=== PATIENT | female | born 1930 | race Caucasian/White ===

== ENCOUNTER 2016-07-05 13:48 | Emergency (ER) | payer MEDICARE, OTHER ==
[~2016-07-05 13:48] MED LIST: ACET500C8 PO; DIVA500T53 PO; DULO30CA PO; LEVO75TA42 PO; QUET50TA PO; TRAZ50TA2 PO
[2016-07-05] MEDS ORDERED: SODIUM CHLORIDE 0.9% 1,000 ML IV ONE (14:39)
[2016-07-05 15:46] LABS: Basophils # (auto) 0 uL; Basophils % (auto) 0.5 % (0.0-2.0); Eosinophils # (auto) 0.2 uL; Eosinophils % (auto) 2.1 % (0.0-7.0); Hematocrit 42.4 % (36.0-46.0); Hemoglobin 14.1 g/dL (12.2-16.2); Lymphocytes # (auto) 4.7 uL; Lymphocytes % (auto) 54.9 % (10.0-50.0); Mean Corpuscular Hemoglobin 30.4 pg (28.0-32.0); Mean Corpuscular Hgb Conc. 33.3 g/dL (32.0-36.0); Mean Corpuscular Volume 91.4 fL (80.0-100.0); Mean Platelet Volume 9.4 fL (7.4-10.4); Monocytes # (auto) 0.8 uL; Monocytes % (auto) 9.2 % (0.0-12.0); Neutrophils # (auto) 2.8 uL; Neutrophils % (auto) 33.3 % (37.0-80.0); Platelet Count (auto) 332 10^3/uL (140-450); Red Cell Distribution Width 13.4 % (11.6-16.0); White Blood Cell 8.5 10^3/uL (4.4-10.8)
[2016-07-05 15:49] LABS: Albumin 3.5 g/dL (3.4-5.0); BUN/Creatinine Ratio 26.2; Calcium 9.1 mg/dL (8.5-10.1); Potassium 3.8 mmol/L (3.5-5.1)
[2016-07-05 15:57] LABS: Bilirubin, Total 0.2 mg/dL (0.2-1.0); Total Protein 7.6 g/dL (6.4-8.2)
[2016-07-05 15:58] LABS: B-Type Natriuretic Peptide 31.31 pg/mL (0-100)
[2016-07-05 16:14] LABS: Temperature: 21.1 C (20.0-25.0)
[2016-07-05 16:50] LABS: Urine RBC None Seen /hpf (0 - 4)
[2016-07-05 17:10] LABS: Urine Bilirubin Negative (Negative); Urine Blood Negative /uL (Negative); Urine Color Yellow (Yellow); Urine Glucose Normal (Normal); Urine Ketone 1+ (Negative); Urine Mucus FEW (None Seen); Urine Nitrite Negative (Negative); Urine Squamous Epithelial Cell FEW /hpf (<5); Urine WBC Clumps PRESENT /hpf (None Seen); Urine pH 6.5 (5.0-8.0)
[2016-07-05] MEDS ORDERED: NITROFURANTOIN (MONO) 100 mg CAP PO ONE (19:15)
[2016-07-05] MEDS ORDERED: LEVOFLOXACIN 500MG 100 ML IV ONE (20:30)
[2016-07-05 23:40] VITALS: BP 147/97
== END 2016-07-06 01:02 | disposition home or self-care (01) ==
LOC: EDUNIT# 13:48 → ER 14:41
DX: F03.90 Unspecified dementia, unspecified severity, without behavioral disturbance, psychotic disturbance, mood disturbance, and anxiety (principal); N39.0 Urinary tract infection, site not specified; M25.552 Pain in left hip
CPT/HCPCS: 36415; 51702; 70450; 71010; 73502; 80053; 81001; 83880; 84484; 85025; 85049; 94761; 96361; 96365; 99285; J1956; J7030

== ENCOUNTER 2016-07-11 10:48 | Inpatient (IN) | payer MEDICARE ==
[~2016-07-11] VITALS: Ht 162.6 cm; Wt 65.6 kg
[2016-07-11 11:55] LABS: Basophils # (auto) 0 uL; Basophils % (auto) 0.3 % (0.0-2.0); Eosinophils # (auto) 0.1 uL; Hematocrit 42.1 % (36.0-46.0); Hemoglobin 13.8 g/dL (12.2-16.2); Lymphocytes # (auto) 3.2 uL; Lymphocytes % (auto) 24.4 % (10.0-50.0); Mean Corpuscular Hemoglobin 30.1 pg (28.0-32.0); Mean Corpuscular Hgb Conc. 32.9 g/dL (32.0-36.0); Mean Corpuscular Volume 91.5 fL (80.0-100.0); Mean Platelet Volume 9.8 fL (7.4-10.4); Monocytes # (auto) 1.4 uL; Neutrophils # (auto) 8.2 uL; Neutrophils % (auto) 63.3 % (37.0-80.0); Platelet Count (auto) 330 10^3/uL (140-450); Red Cell Distribution Width 13.4 % (11.6-16.0)
[2016-07-11 12:27] LABS: Albumin 3.6 g/dL (3.4-5.0); BUN/Creatinine Ratio 20.6; Bilirubin, Total 0.3 mg/dL (0.2-1.0); Calcium 9.4 mg/dL (8.5-10.1); Magnesium 2.4 mg/dL (1.6-2.6); Potassium 3.9 mmol/L (3.5-5.1); Total Protein 7.6 g/dL (6.4-8.2)
[2016-07-11 13:48] LABS: Urine Bilirubin Negative (Negative); Urine Blood Negative /uL (Negative); Urine Color Yellow (Yellow); Urine Glucose Normal (Normal); Urine Mucus FEW (None Seen); Urine Nitrite Negative (Negative); Urine RBC 1 /hpf (0 - 4); Urine Squamous Epithelial Cell FEW /hpf (<5); Urine Urobilinogen Normal (Negative); Urine pH 7.5 (5.0-8.0)
[2016-07-11 13:51] LABS: Urine Ketone 1+ (Negative)
[2016-07-11] MEDS ORDERED: SODIUM CHLORIDE 0.9% 1,000 ML IV ONE (15:29)
[2016-07-11] MEDS ORDERED: cefTRIAXone 1GM/50ML D5W 50 ML IV ONE (15:45)
[2016-07-11] MEDS ORDERED: MORPHINE SULF INJ 2 MG/ML SYRINGE 1ML IV ONE (16:30)
[2016-07-11] MEDS ORDERED: ONDANSETRON HCL 4 MG/2 ML VIAL IV ONE (16:30)
[2016-07-11] MEDS ORDERED: AZITHROMYCIN 500MG/D5W 250ML 250 ML IV ONE (17:15)
[2016-07-11 17:26] LABS: INR 1.08 (0.9-1.15); Partial Thromboplastin Time 26.6 sec (22.64-33.71); Prothrombin Time 11.1 sec (9.37-12.3)
[2016-07-11] MEDS ORDERED: DOCUSATE SOD 100 MG CAP PO PRN (17:45)
[2016-07-11] MEDS ORDERED: HYDROcodone-ACET 5/325MG TAB PO PRN (17:45)
[2016-07-11] MEDS ORDERED: ONDANSETRON HCL 4 MG/2 ML VIAL IV PRN (17:45)
[2016-07-11] MEDS ORDERED: MORPHINE SULF INJ 2 MG/ML SYRINGE 1ML IV PRN (17:45)
[2016-07-11] MEDS ORDERED: ACETAMINOPHEN 325 MG TAB PO PRN (17:45)
[2016-07-11] MEDS ORDERED: TEMAZEPAM 15 MG CAP PO PRN (17:45)
[2016-07-11] MEDS ORDERED: cloNIDine HCL 0.1 MG TAB PO PRN (19:15)
[2016-07-11 20:00] VITALS: BP 142/78
[2016-07-11 21:01] VITALS: BP 142/78
[2016-07-11] MEDS: SODIUM CHLOR 0.9% PF (SALINE LOCK) 10ML VIAL IV SCH (22:45)
[2016-07-11] MEDS: VALPROATE SOD 250 MG/5 ML ORAL SOLN PO SCH (22:46)
[2016-07-11] MEDS: ALPRAZolam 0.5 MG TAB PO SCH (22:49)
[2016-07-11] MEDS: QUEtiapine FUMARATE 25 MG TAB PO SCH (22:50)
[2016-07-11] MEDS: traZODone HCL 50 MG TAB PO SCH (22:52)
[2016-07-11] MEDS: ASCORBIC ACID 500 MG TAB PO SCH (22:52)
[2016-07-12 05:00] VITALS: BP 108/60
[2016-07-12 05:53] LABS: Potassium 3.5 mmol/L (3.5-5.1)
[2016-07-12 05:58] LABS: Albumin 2.8 g/dL (3.4-5.0); BUN/Creatinine Ratio 17.2; Calcium 8.1 mg/dL (8.5-10.1)
[2016-07-12 05:59] LABS: Basophils # (auto) 0 uL; Basophils % (auto) 0.4 % (0.0-2.0); Eosinophils # (auto) 0.1 uL; Eosinophils % (auto) 1.3 % (0.0-7.0); Hematocrit 36.5 % (36.0-46.0); Hemoglobin 11.9 g/dL (12.2-16.2); Lymphocytes # (auto) 2.9 uL; Lymphocytes % (auto) 33.9 % (10.0-50.0); Mean Corpuscular Hemoglobin 30.3 pg (28.0-32.0); Mean Corpuscular Hgb Conc. 32.7 g/dL (32.0-36.0); Mean Corpuscular Volume 92.6 fL (80.0-100.0); Mean Platelet Volume 9.7 fL (7.4-10.4); Monocytes # (auto) 1.2 uL; Monocytes % (auto) 14.2 % (0.0-12.0); Neutrophils # (auto) 4.4 uL; Neutrophils % (auto) 50.2 % (37.0-80.0); Platelet Count (auto) 309 10^3/uL (140-450); Red Cell Distribution Width 13.6 % (11.6-16.0); White Blood Cell 8.7 10^3/uL (4.4-10.8)
[2016-07-12 06:00] LABS: Bilirubin, Total 0.2 mg/dL (0.2-1.0); Total Protein 6.7 g/dL (6.4-8.2)
[2016-07-12] MEDS: SODIUM CHLOR 0.9% PF (SALINE LOCK) 10ML VIAL IV SCH ×3 (06:22→22:08)
[2016-07-12] MEDS: LEVOTHYROXINE SODIUM 25 MCG TAB PO SCH (06:23)
[2016-07-12] MEDS: QUEtiapine FUMARATE 25 MG TAB PO SCH ×3 (06:23→22:08)
[2016-07-12] MEDS: cefTRIAXone 1GM/50ML D5W 50 ML IV SCH (08:37)
[2016-07-12 09:00] VITALS: BP 101/63
[2016-07-12] MEDS: MULTIPLE VITAMIN TAB PO SCH (10:30)
[2016-07-12] MEDS: ZINC SULFATE 220 MG CAP PO SCH (10:30)
[2016-07-12] MEDS: DULoxetine HCL 30 MG CAP PO SCH (10:30)
[2016-07-12] MEDS: ASCORBIC ACID 500 MG TAB PO SCH ×2 (10:31→22:08)
[2016-07-12] MEDS: VALPROATE SOD 250 MG/5 ML ORAL SOLN PO SCH ×2 (10:31→22:08)
[2016-07-12] MEDS: AZITHROMYCIN 500MG/D5W 250ML 250 ML IV SCH (10:32)
[2016-07-12] MEDS: ALPRAZolam 0.5 MG TAB PO SCH ×2 (10:32→22:08)
[2016-07-12 13:00] VITALS: BP 118/52
[2016-07-12 17:00] VITALS: BP 118/56
[2016-07-12 22:00] VITALS: BP 113/57
[2016-07-12] MEDS: traZODone HCL 50 MG TAB PO SCH (22:08)
[2016-07-13 05:00] VITALS: BP 120/51
[2016-07-13] MEDS: QUEtiapine FUMARATE 25 MG TAB PO SCH (06:13)
[2016-07-13] MEDS: SODIUM CHLOR 0.9% PF (SALINE LOCK) 10ML VIAL IV SCH (06:13)
[2016-07-13] MEDS: LEVOTHYROXINE SODIUM 25 MCG TAB PO SCH (06:13)
[2016-07-13] MEDS: cefTRIAXone 1GM/50ML D5W 50 ML IV SCH (10:19)
[2016-07-13] MEDS: AZITHROMYCIN 500MG/D5W 250ML 250 ML IV SCH (10:20)
[2016-07-13] MEDS: DULoxetine HCL 30 MG CAP PO SCH (10:24)
[2016-07-13] MEDS: ALPRAZolam 0.5 MG TAB PO SCH (10:25)
[2016-07-13] MEDS: MULTIPLE VITAMIN TAB PO SCH (10:26)
[2016-07-13] MEDS: ASCORBIC ACID 500 MG TAB PO SCH (10:26)
[2016-07-13] MEDS: ZINC SULFATE 220 MG CAP PO SCH (10:26)
[2016-07-13] MEDS: VALPROATE SOD 250 MG/5 ML ORAL SOLN PO SCH (10:27)
[2016-07-13 10:59] VITALS: BP 123/66
== END 2016-07-13 14:00 | DRG 177 ==
LOC: EDUNIT# 10:48 → ER 11:06 → CENTRAL 11:07
PROVIDERS: ADMIT Internal Medicine; ATTEND Internal Medicine Pulmonary Disease
DX: J69.0 Pneumonitis due to inhalation of food and vomit (principal); S72.002A Fracture of unspecified part of neck of left femur, initial encounter for closed fracture; S09.90XA Unspecified injury of head, initial encounter; Y92.129 Unspecified place in nursing home as the place of occurrence of the external cause; R04.0 Epistaxis; W19.XXXA Unspecified fall, initial encounter; F32.9 Major depressive disorder, single episode, unspecified; I12.9 Hypertensive chronic kidney disease with stage 1 through stage 4 chronic kidney disease, or unspecified chronic kidney disease; N18.2 Chronic kidney disease, stage 2 (mild); E03.9 Hypothyroidism, unspecified; F03.90 Unspecified dementia, unspecified severity, without behavioral disturbance, psychotic disturbance, mood disturbance, and anxiety; R29.6 Repeated falls; S00.83XA Contusion of other part of head, initial encounter; Z22.322 Carrier or suspected carrier of Methicillin resistant Staphylococcus aureus
CPT/HCPCS: 36415; 51702; 70140; 70450; 71010; 73502; 73562; 80053; 81001; 83735; 84484; 85025; 85049; 85610; 85730; 87040; 87081; 96365; 96367; 96375; 97001; J0696; J2405

== ENCOUNTER 2017-05-06 11:36 | Emergency (ER) | payer MEDICARE ==
[~2017-05-06] VITALS: Ht 160 cm; Wt 68.0 kg
[2017-05-06] MEDS ORDERED: LIDOCAINE 1% HCL (LOCAL ANESTH.) INJ 20ML MDV ONE (13:22)
[2017-05-06] MEDS ORDERED: BACITRACIN TOP OINT 1 UD PKG TOP ONE (13:30)
[2017-05-06] MEDS ORDERED: LIDOCAINE 1% HCL (LOCAL ANESTH.) INJ 20ML MDV IJ ONE (14:00)
[2017-05-06 14:15] VITALS: BP 144/69
== END 2017-05-06 15:41 | disposition home or self-care (01) ==
LOC: EDBD 11:36 → ER 11:44
DX: S01.81XA Laceration without foreign body of other part of head, initial encounter (principal); S00.93XA Contusion of unspecified part of head, initial encounter; E07.9 Disorder of thyroid, unspecified; W18.39XA Other fall on same level, initial encounter; Y93.89 Activity, other specified; Y92.89 Other specified places as the place of occurrence of the external cause; Y99.8 Other external cause status
CPT/HCPCS: 12015; 70450; 72125; 93005; 99284; J2001